=== PATIENT | male | born 1965 | race Caucasian/White ===

== ENCOUNTER → 2017-06-01 | Outpatient (CLI) | payer BC | END | disposition home or self-care (01) | LOC: GMAB 18:02 | PROVIDERS: ATTEND Family Medicine | DX: R06.02 Shortness of breath (principal) ==

== ENCOUNTER → 2017-06-04 | Outpatient (CLI) | payer OTHER ==
--- NOTE | 2017-06-04 13:05 | CT ---
EXAM DESCRIPTION: Chest w/Contrast CT. CLINICAL HISTORY: SHORTNESS OF BREATH COMPARISON: None. TECHNIQUE: Spiral-axial scans at 5.0 mm intervals through the lungs and thorax with IV contrast. 2.5 mm lung algorithm axial reconstructions. Oral and sagittal 2.0 Mm reconstructions. No adverse reactions. Total Exam DLP: 763.86 mGy-cm. This exam was performed according to our departmental dose-optimization program which includes automated exposure control, adjustment of the mA and/or kV according to patient size and/or use of iterative reconstruction technique; to reduce radiation dose to as low as reasonably achievable (ALARA). FINDINGS: Bilateral pleural effusions larger on the right with possible loculation, lateral pleura. Lobulated density approximately 5 x 2 cm in the posterior right major fissure most likely fluid. Atelectasis right lower lobe most likely compression from the pleural fluid. Fluid also in the horizontal fissure. Small groundglass densities in the posterior right upper lobe. Minimal compressive atelectasis in the left lower lobe. 2 mm subpleural density in the lung or originating from the pleura anterolaterally In the lingula without calcification (series 4, image 75). No large area of consolidation bilaterally or abnormal calcifications. No pneumothorax. Included thyroid gland with uniform enhancement. No soft tissue masses in the base of the neck bilateral axilla, or upper mediastinum. It is sonolucent nodes are not enlarged. Coronary artery calcifications. Tiny cardial effusion at the base. Minimal atherosclerotic calcification of the aorta and the origin of the brachiocephalic vessels. No hilar adenopathy. No free fluid or free air in the included subdiaphragmatic peritoneal space. Gastric band upper stomach with small hiatal hernia above the band. Minimal distention by gas in the pylorus. Normal size and enhancement of the adrenal glands and spleen. Fatty density of the liver. Spondylosis mid and lower thoracic spine and upper lumbar spine. IMPRESSION: 1. Bilateral pleural effusions more right than left with loculation laterally on the right. Compressive atelectasis bilateral lower lobes more on the right. Small focal groundglass infiltrates right upper lobe. No pneumothorax. 2. Technique not optimal for pulmonary arteries. No filling defects from the main pulmonary artery to the levels of bilateral distal lobar artery branching. 3. Pericardial effusion with coronary artery calcifications. Calcification of the thoracic aorta and proximal brachiocephalic vessels. 4. Gastric band proximal stomach with small hiatal hernia. Minimal distention of the pylorus with gas. Steatosis of the liver. CRITICAL COMMUNICATION: The critical value was discussed directly by phone with Dr. Sachin Gomez at approximately 1255 hours, on June 04, 2017. Electronically signed by: Milton Aguilar MD 06/04/2017 1:03 PM [employer]
== END | disposition home or self-care (01) ==
LOC: CT 09:29
PROVIDERS: ATTEND Family Medicine
DX: R06.02 Shortness of breath (principal)

== ENCOUNTER → 2017-07-20 | Outpatient (CLI) | payer OTHER | LOC: LAB.O 09:14 | PROVIDERS: ATTEND Internal Medicine Interventional Cardiology | DX: I48.91 Unspecified atrial fibrillation (principal) ==

== ENCOUNTER → 2019-10-18 | Outpatient (CLI) | payer OTHER | LOC: GMAE 11:16 | PROVIDERS: ATTEND Family Medicine | DX: Z00.00 Encounter for general adult medical examination without abnormal findings (principal) ==